=== PATIENT | female | born 1960 | race Caucasian/White ===

== ENCOUNTER 2024-06-10 12:26 | Emergency (ER) | payer MEDICARE, OTHER ==
[~2024-06-10] VITALS: Ht 157.5 cm; Wt 52.2 kg
[~2024-06-10 12:26] MED LIST: BUSPIRONE HCL15 MG PO; CLONIDINE HCL0.1 MG PO; CYCLOBENZAPRINE10 MG PO; HYDROXYZINE HCL25 MG PO; LATANOPROST2.5 ML OPTH; LEVOTHYROXINE50 MCG PO; METOPROLOL SUCC25 MG PO; PROMETHAZINE HC25 M1 PO; VENTOLIN HFA18 GM INH
[2024-06-10] MEDS ORDERED: BUSPIRONE HCL10 MG PO (12:33)
[2024-06-10 12:40] LABS: BASOPHILS 0.3 % (0-2); EOSINOPHILS 0.4 % (0-6); HEMATOCRIT 41.5 % (35.0-50.0); HEMOGLOBIN 14.5 g/dL (12.0-18.0); LYMPHOCYTES 25.1 % (24-44); MCH 30.8 (27-36); MONOCYTES 5.5 % (0-12); NEUTROPHILS 68.7 % (39-80); PLATELET COUNT 212 K/uL (140-440); RBC 4.72 M/ul (4.3-5.7); RDW 13.7 (10.5-15.0)
[2024-06-10] MEDS ORDERED: SODIUM CHLORIDE 0.9% 1,000 ML IV PRN (12:45)
[2024-06-10 12:59] LABS: ALBUMIN 3.9 g/dL (3.4-5.0); ALBUMIN/GLOBULIN RATIO 1.44 (1.1-2.4); ANION GAP 16.4 (7-21); BILIRUBIN, TOTAL 0.2 ng/dL (0.2-1.0); BUN/CREATININE RATIO 14.28 (6.0-28.6); CALCIUM 9.2 mg/dL (8.5-10.1); CREATININE, SERUM 0.84 mg/dL (0.55-1.02); MAGNESIUM 1.7 mg/dL (1.8-2.4); POTASSIUM 3.4 mmol/L (3.5-5.1); PROTEIN, TOTAL 6.6 g/dL (6.4-8.2)
[2024-06-10] MEDS ORDERED: ondansetron HCL 4 MG/2 ML VIAL IV ONE (13:15)
[2024-06-10] MEDS ORDERED: LIDOCAINE & ANTACID 35 ML BTL PO ONE (13:15)
[2024-06-10 13:37] LABS: BILIRUBIN, URINE NEGATIVE (negative); BLOOD/HGB, URINE NEGATIVE (Negative); KETONE, URINE NEGATIVE (Negative); LEUK ESTERASE, URINE NEGATIVE (negative); NITRITE, URINE NEGATIVE (negative)
[2024-06-10 15:13] VITALS: BP 116/75
--- NOTE | 2024-06-11 13:25 | EKG ---
[facility] [address] [place], [place] [address] Signed Sinus tachycardia Otherwise normal ECG No previous ECGs available Confirmed by Josue Leone MD ([id number]) on 06/11/2024 1:25:29 PM Electronically Signed By: JOSUE LEONE MD 06/11/24 1325 PATIENT NAME: ROBIN SAHU Electrocardiogram DATE OF : 56 PHYSICIAN: JOSUE LEONE MD REPORT #: [id number] REPORT IS CONFIDENTIAL AND NOT TO BE RELEASED WITHOUT AUTHORIZATION
== END 2024-06-10 15:13 | disposition home or self-care (01) ==
LOC: ED 12:26
PROVIDERS: Emergency Medicine
DX: R00.2 Palpitations (principal); I10 Essential (primary) hypertension; Z88.6 Allergy status to analgesic agent; Z88.1 Allergy status to other antibiotic agents; Z88.0 Allergy status to penicillin; Z79.890 Hormone replacement therapy; Z79.899 Other long term (current) drug therapy
CPT/HCPCS: 36415; 80053; 81003; 83690; 83735; 85025; 93005; 93010; 99285; J2405; J7030

== ENCOUNTER 2024-12-21 20:11 | Emergency (ER) | payer OTHER, MEDICARE ==
[~2024-12-21] VITALS: Ht 157.5 cm; Wt 48.5 kg
[~2024-12-21 20:11] MED LIST changes: +BUSPIRONE HCL10 MG PO
[2024-12-22] MEDS ORDERED: HYDROCODON-ACE1 EA10 PO (01:22)
[2024-12-22] MEDS ORDERED: HYDROCODONE BIT/ACETAMINOPHEN 5/325 MG 1 TAB HOME.PACK PO ONE (01:30)
[2024-12-22 01:46] VITALS: BP 144/77
== END 2024-12-22 01:46 | disposition home or self-care (01) ==
LOC: ED 20:11
DX: S52.572A Other intraarticular fracture of lower end of left radius, initial encounter for closed fracture (principal); I10 Essential (primary) hypertension; W01.0XXA Fall on same level from slipping, tripping and stumbling without subsequent striking against object, initial encounter; Z79.899 Other long term (current) drug therapy; Z88.6 Allergy status to analgesic agent; Z88.0 Allergy status to penicillin
CPT/HCPCS: 73110; 73130; 99283; A9270

== ENCOUNTER 2025-01-01 12:10 | Emergency (ER) | payer MEDICARE, OTHER ==
[~2025-01-01] VITALS: Ht 157.5 cm; Wt 47.2 kg
[~2025-01-01 12:10] MED LIST changes: +HYDROCODON-ACE1 EA10 PO
--- OUTSIDE RECORDS SUMMARY | 2025-01-01 12:17 | XMS ---
PreManage Notification: ROBIN SAHU [employer] Press Events No recent Security Events currently on file CRITERIA MET - [facility] - 2 Visits in 30 Days CARE PROVIDERS -, [facility] Dentist: Construction Technician Current [place] PHONE: [phone] -, [place]- Dentist: Construction Technician [facility] PHONE: [phone] Mary Quispe Physician [employer] August MALONE PHONE: [phone] Monica has no Care Guidelines for this patient. E.D. VISIT COUNT (12 MO.) 3 [facility] TOTAL 3 NOTE: Visits indicate total known visits. ED/UCC VISIT TRACKING (12 MO.) 01/01/2025 12:11 [facility] [place] TYPE: Emergency COMPLAINT: - BLOOD PRESSURE PROBLEM 12/21/2024 20:12 [facility] [place] TYPE: Emergency COMPLAINT: - LEFT HAND INJURY DIAGNOSES: - Allergy status to analgesic agent - Allergy status to penicillin - Essential (primary) hypertension - Fall on same level from slipping, tripping and stumbling without subsequent striking against object, initial encounter - Other intraarticular fracture of lower end of left radius, initial encounter for closed fracture - Other detention (current) drug therapy - Pain in left forearm 06/10/2024 12:26 [facility] [place] TYPE: Emergency COMPLAINT: - HEART PROBLEM DIAGNOSES: - Allergy status to analgesic agent - Allergy status to other antibiotic agents - Allergy status to penicillin - Essential (primary) hypertension - Hormone replacement therapy - Other oysterman (current) drug therapy - Palpitations INPATIENT VISIT TRACKING (12 MO.) No inpatient visits to display in this time frame [email or web address]
[2025-01-01 12:54] LABS: BASOPHILS 0.8 % (0.1-1.2); EOSINOPHILS 0.3 % (0.7-5.8); LYMPHOCYTES 23.4 % (19.3-51.7); MCH 30.0 PG (25.6-32.2); MCHC 34.5 g/dL (32.2-35.5); MCV 87.0 fL (79.4-94.8); MONOCYTES 4.8 % (4.7-12.5); NEUTROPHILS 70.4 % (34.0-71.1); RBC 4.93 M/uL (3.93-5.22)
[2025-01-01 13:07] LABS: ALT (SGPT) 24 U/L (14-59); AST (SGOT) 19 U/L (15-37); GLOMERULAR FILTRATION RATE,EST 88 mL/min (>60); PROTEIN, TOTAL 6.9 g/dL (6.4-8.2); UREA NITROGEN 8 mg/dL (7-18)
[2025-01-01] MEDS ORDERED: POTASSIUM CHLO10 MEQ PO (14:36)
[2025-01-01 14:41] VITALS: BP 171/105
--- NOTE | 2025-01-02 12:59 | EKG ---
[facility] [address] [place] [address] Signed Normal sinus rhythm Normal ECG When compared with ECG of 10-JUN-2024 12:26, No significant change was found Confirmed by Claudia Marquez DO ([id number]) on 01/02/2025 12:58:53 PM Electronically Signed By: CLAUDIA MARQUEZ DO 01/02/25 1259 PATIENT NAME: ROBIN SAHU Electrocardiogram DATE OF : 56 PHYSICIAN: CLAUDIA MARQUEZ DO REPORT #: [id number] REPORT IS CONFIDENTIAL AND NOT TO BE RELEASED WITHOUT AUTHORIZATION
== END 2025-01-01 14:40 | disposition home or self-care (01) ==
LOC: ED 12:10
PROVIDERS: Emergency Medicine
DX: I10 Essential (primary) hypertension (principal); R07.89 Other chest pain; Z88.6 Allergy status to analgesic agent; Z88.0 Allergy status to penicillin; Z88.1 Allergy status to other antibiotic agents; Z79.890 Hormone replacement therapy; Z79.899 Other long term (current) drug therapy
CPT/HCPCS: 36415; 80053; 84484; 85025; 93005; 93010; 99285